=== PATIENT | female | born 1975 | race Caucasian/White ===

== ENCOUNTER 2018-12-29 16:10 | Inpatient (IN) | payer OTHER ==
[~2018-12-29] VITALS: Ht 137.2 cm; Wt 82.6 kg
--- NOTE | 2018-12-29 16:42 | PHYS DOC ---
Past Medical History Past Medical History: Asthma, Hypertension, Hypothyroid Past Surgical History: Cholecystectomy, Hysterectomy Alcohol Use: None Drug Use: None Adult General Chief Complaint Chief Complaint: COUGH HPI HPI 43-year-old female presents to ER via POV for complaints of productive cough and congestion for the past week. She reports she feels like she has had a low-grade temperature at triage is 98.5. Patient states she has had yellowish-green phlegm with her cough. She denies shortness of air or chest pain/tightness. Patient reports she's had regular appetite denying any vomiting or diarrhea episodes. She denies any urinary symptoms. She reports she has been using [id number] Mucinex and did take a Percocet and Xanax today for generalized aches and anxiety. Patient is daily smoker. Pt has had hysterectomy. Review of Systems Review of Systems Constitutional: Denies fever or chills [] Eyes: Denies change in visual acuity, redness, or eye pain [] HENT: Denies nasal congestion or sore throat [] Respiratory: Denies cough or shortness of breath [] Cardiovascular: No additional information not addressed in HPI [] GI: Denies abdominal pain, nausea, vomiting, bloody stools or diarrhea [] : Denies dysuria or hematuria [] Musculoskeletal: Denies back pain or joint pain [] Integument: Denies rash or skin lesions [] Neurologic: Denies headache, focal weakness or sensory changes [] Endocrine: Denies polyuria or polydipsia [] All other systems were reviewed and found to be within normal limits, except as documented in this note. Current Medications Current Medications Current Medications Medications (Trade) Dose Ordered Sig/Carissa Start Time Stop Time Status Last Admin Dose Admin Albuterol/ Ipratropium (Duoneb) 3 ml 1X ONCE 12/29/18 19:00 12/29/18 19:01 DC 12/29/18 19:05 3 ML Info (CONTRAST GIVEN -- Rx MONITORING) 1 each PRN DAILY PRN 12/29/18 18:45 12/31/18 18:44 Iohexol (Omnipaque 350 Mg/ml) 100 ml 1X ONCE 12/29/18 19:00 12/29/18 19:01 DC 12/29/18 18:51 100 ML Prednisone (Prednisone) 50 mg 1X ONCE 4/28/19 16:45 12/29/18 16:46 DC 12/29/18 16:53 50 MG Sodium Chloride 1,000 ml @ 1,000 mls/hr 1X ONCE 12/29/18 18:00 12/29/18 18:59 DC 12/29/18 18:00 1,000 MLS/HR Allergies Allergies Allergies Coded Allergies Type Severity Reaction Last Updated Verified No Known Drug Allergies 12/29/18 No Physical Exam Physical Exam Constitutional: Well developed, well nourished, no acute distress, non-toxic appearance. [] HENT: Normocephalic, atraumatic, bilateral ears normal, oropharynx moist- no pharyngeal swelling/erythema, no oral exudates, nose normal. [] Eyes: Pupils equal, conjunctiva normal, no discharge. [] Neck: Normal range of motion, no tenderness, supple, no stridor/gross adenopathy Cardiovascular: Heart rate regular rhythm, no murmur [] Lungs & Thorax: Bilateral breath sounds clear to auscultation- diminished air movement throughout all lung yates. Resp. equal/nonlabored. Speaking in full sentences Skin: Warm, dry, no erythema, no rash. [] Back: No tenderness, no CVA tenderness. [] Extremities: No tenderness, no cyanosis, no clubbing, ROM intact, no edema. [] Neurologic: Alert and oriented X 3, normal motor function, normal sensory function, no focal deficits noted. [] Psychologic: Affect normal, judgement normal, mood normal. [] Current Patient Data Vital Signs Vital Signs Date Time Temp Pulse Resp B/P (MAP) Pulse Ox O2 Delivery O2 Flow Rate FiO2 12/29/18 19:00 98 Room Air 12/29/18 18:49 75 16 134/58 (83) 12/29/18 16:21 98.5 98.5 Lab Values Laboratory Tests Test 12/29/18 17:38 12/29/18 17:55 Urine Collection Type Unknown Urine Color Yellow Urine Clarity Clear Urine pH 6.0 Urine Specific [place] 1.010 Urine Protein Negative mg/dL (NEG-TRACE) Urine Glucose (UA) Negative mg/dL (NEG) Urine Ketones (Stick) Negative mg/dL (NEG) Urine Blood Negative (NEG) Urine Nitrite Negative (NEG) Urine Bilirubin Negative (NEG) Urine Urobilinogen Dipstick 0.2 mg/dL (0.2 mg/dL) Urine Leukocyte Esterase Negative (NEG) Urine RBC 0 /HPF (0-2) Urine WBC 0 /HPF (0-4) Urine Squamous Epithelial Cells Few /LPF Urine Bacteria 0 /HPF (0-FEW) White Blood Count 10.4 x10^3/uL (4.0-11.0) Red Blood Count 4.02 x10^6/uL (3.50-5.40) Hemoglobin 13.6 g/dL (12.0-15.5) Hematocrit 40.0 % (36.0-47.0) Mean Corpuscular Volume 100 fL (79-100) Mean Corpuscular Hemoglobin 34 pg (25-35) Mean Corpuscular Hemoglobin Concent 34 g/dL (31-37) Red Cell Distribution Width 14.1 % (11.5-14.5) Platelet Count 367 x10^3/uL (140-400) Neutrophils (%) (Auto) 68 % (31-73) Lymphocytes (%) (Auto) 21 % (24-48) L Monocytes (%) (Auto) 10 % (0-9) H Eosinophils (%) (Auto) 2 % (0-3) Basophils (%) (Auto) 1 % (0-3) Neutrophils # (Auto) 7.0 x10^3uL (1.8-7.7) Lymphocytes # (Auto) 2.2 x10^3/uL (1.0-4.8) Monocytes # (Auto) 1.0 x10^3/uL (0.0-1.1) Eosinophils # (Auto) 0.2 x10^3/uL (0.0-0.7) Basophils # (Auto) 0.1 x10^3/uL (0.0-0.2) Sodium Level 139 mmol/L (136-145) Potassium Level 3.9 mmol/L (3.5-5.1) Chloride Level 100 mmol/L (98-107) Carbon Dioxide Level 28 mmol/L (21-32) Anion Gap 11 (6-14) Blood Urea Nitrogen 10 mg/dL (7-20) Creatinine 0.7 mg/dL (0.6-1.0) Estimated GFR (Cockcroft-Gault) 90.5 BUN/Creatinine Ratio 14 (6-20) Glucose Level 93 mg/dL (70-99) Calcium Level 8.5 mg/dL (8.5-10.1) Magnesium Level 2.1 mg/dL (1.8-2.4) Total Bilirubin 0.3 mg/dL (0.2-1.0) Aspartate Amino Transferase (AST) 13 U/L (15-37) L Alanine Aminotransferase (ALT) 25 U/L (14-59) Alkaline Phosphatase 78 U/L (46-116) Total Protein 7.3 g/dL (6.4-8.2) Albumin 3.4 g/dL (3.4-5.0) Albumin/Globulin Ratio 0.9 (1.0-1.7) L Laboratory Tests 12/29/18 17:55 Laboratory Tests 12/29/18 17:55 EKG EKG [] Radiology/Procedures Radiology/Procedures PROCEDURE: CHEST PA & LATERAL PA and lateral chest. HISTORY: Severe cough PA and lateral views were taken of the chest. Lungs are clear. Heart is normal in size without heart failure. There is no pleural effusion. IMPRESSION: 1. No acute chest disease. Electronically signed by: Clark Rashid MD (12/29/2018 5:27 PM) [id number] DICTATED and SIGNED BY: CLARK RASHID MD DATE: 12/29/187 PROCEDURE: CT ANGIOGRAPHY CHEST CT angiogram of the chest with contrast: Reason for examination: Shortness of breath with cough. Helical images were obtained through the chest with intravenous administration of 100 cc of Omnipaque 350 using PE protocol. 3-D MIPS reconstruction was performed in sagittal and coronal planes. Exposure: One or more of the following individualized dose reduction techniques were utilized for this examination: 1. Automated exposure control 2. Adjustment of the mA and/or kV according to patient size 3. Use of iterative reconstruction technique. No abnormality seen at the thyroid gland. The trachea and mainstem bronchi show no intraluminal lesions. No abnormality seen at the esophagus. The thoracic aorta shows no aneurysmal dilatation or evidence of dissection. The heart size is normal with no pericardial effusion. There is no evidence of pulmonary embolus. There are some mild patchy areas of groundglass infiltrate in the left upper lobe. There also appear to be small nodular densities pleural-based anterior medially in the lingula near the angle of the heart measuring 1.6 and 1 cm in size. No abnormality seen at the visualized portions of the liver, spleen or adrenal glands. There are no acute bony abnormality seen in the chest. IMPRESSION: No evidence of pulmonary embolus. Mild patchy groundglass infiltrates in the left upper lobe peripherally. Small pulmonary nodules in the anterior medial aspect of the lingula at the angle of the heart measuring 1.6 and 1 cm in size. Recommend follow-up according to Fleischner Society guidelines. According to the 2017 Fleischner Society Guidelines for multiple solid pulmonary nodules (Radiology, October 2016, volume 284, number 1, pages 228-243): In low risk multiple nodule patient: <6mm - No follow up required. 6-8mm - CT at 3-6 months, then consider CT at 18-24 months >8mm - CT at 3-6 months, then consider CT at 18-24 months In high risk multiple nodule patient: <6mm - Optional 12 month follow up. 6-8mm - CT at 3-6 months, then consider CT at 18-24 months >8mm - CT at 3-6 months, then consider CT at 18-24 months Use most suspicious nodule as guided to management. Electronically signed by: Klaudia Reddy MD (12/29/2018 7:48 PM) [facility] DICTATED and SIGNED BY: KLAUDIA REDDY MD DATE: 12/29/181947 Course & Med Decision Making Course & Med Decision Making Pertinent Imaging studies reviewed. (See chart for details) 1900: Re-evaluation patient has increased air movement in upper lobes- expiratory wheeze bilat. upper lobes. Diminished in bases. She reports her symptoms have improved following treatments received. Discussed lab results with no acute findings. Patient's CT chest is pending. Will administer her second DuoNeb treatment while that is pending. Patient is in no visible distress at this time with equal nonlabored respirations. Pt was evaluated in the ER for c/o prod. cough and SOA- pt had CT chest obtained as initial xray was viewed by ER physician with area of question in rt upper lobe and so obtained CT for further eval. On CT chest report "No evidence of pulmonary embolus. Mild patchy groundglass infiltrates in the left upper lobe peripherally". Discussed test results with pt with her mother at bedside. On re- evaluation pt continues to have expiratory wheezing in bilat. upper lobes with coarse lt upper sounds also- she does have increased air movement in bases. Resp. equal/nonlabored. Discussed admission for further care/monitoring and pt is agreeable with admit plan. Will admit to hospitalist services and provide dose of IV Rocephin and Azithromycin. Dragon Disclaimer Dragon Disclaimer This electronic medical record was generated, in whole or in part, using a voice recognition dictation system. Departure Departure Impression: Primary Impression: Left upper lobe pulmonary infiltrate Disposition: ADMITTED INPATIENT Admitting Physician: Jessie Schultz Condition: STABLE REFFITTKANE APRN Dec 29, 2018 16:42
[2018-12-29] MEDS ORDERED: IPRATRPIUM/ALBUTEROL 0.5/2.5MG 3 ML NEBU. NEB ONE ×2 (16:45→19:00)
[2018-12-29] MEDS ORDERED: predniSONE 10 MG TABLET PO ONE (16:45)
--- NOTE | 2018-12-29 17:30 | RAD ---
PA and lateral chest. HISTORY: Severe cough PA and lateral views were taken of the chest. Lungs are clear. Heart is normal in size without heart failure. There is no pleural effusion. IMPRESSION: 1. No acute chest disease. Electronically signed by: Clark Rashid MD (12/29/2018 5:27 PM) [id number]
[2018-12-29 17:53] LABS: BILIRUBIN,URINE NEGATIVE (NEG); CLARITY,URINE CLEAR; COLOR,URINE YELLOW; NITRITE,URINE NEGATIVE (NEG); PROTEIN,URINE NEGATIVE (NEG-TRACE); UROBILINOGEN,URINE 0.2 mg/dL (0.2 mg/dL)
[2018-12-29 17:59] LABS: BACTERIA,URINE 0 /HPF (0-FEW); RBC,URINE 0 /HPF (0-2); SQUAMOUS EPITHELIAL CELL,UR FEW /LPF; WBC,URINE 0 /HPF (0-4)
[2018-12-29] MEDS ORDERED: IV NORMAL SALINE 1000ML BAG 1,000 ML IV ONE (18:00)
[2018-12-29 18:11] LABS: BASO # 0.1 x10^3/uL (0.0-0.2); BASO % 1 % (0-3); EOS # 0.2 x10^3/uL (0.0-0.7); EOS % 2 % (0-3); HEMOGLOBIN 13.6 g/dL (12.0-15.5); LYMPH # 2.2 x10^3/uL (1.0-4.8); LYMPH % 21 % (24-48); MEAN CORPUSCULAR HEMOGLOBIN 34 pg (25-35); MEAN CORPUSCULAR HGB CONC 34 g/dL (31-37); MEAN CORPUSCULAR VOLUME 100 fL (79-100); MONO % 10 % (0-9); NEUT % 68 % (31-73); PLATELET COUNT 367 x10^3/uL (140-400); RED BLOOD COUNT 4.02 x10^6/uL (3.50-5.40); RED CELL DISTRIBUTION WIDTH 14.1 % (11.5-14.5); WHITE BLOOD COUNT 10.4 x10^3/uL (4.0-11.0)
[2018-12-29 18:24] LABS: CALCIUM 8.5 mg/dL (8.5-10.1); CREATININE 0.7 mg/dL (0.6-1.0); GFR 90.5; POTASSIUM 3.9 mmol/L (3.5-5.1)
[2018-12-29 18:28] LABS: ALBUMIN 3.4 g/dL (3.4-5.0); ALBUMIN/GLOBULIN RATIO 0.9 (1.0-1.7); MAGNESIUM 2.1 mg/dL (1.8-2.4); TOTAL BILIRUBIN 0.3 mg/dL (0.2-1.0); TOTAL PROTEIN 7.3 g/dL (6.4-8.2)
[2018-12-29] MEDS ORDERED: CONTRAST GIVEN. MC PRN (18:45)
[2018-12-29] MEDS ORDERED: IOHEXOL 350 MG/ML 100 ML VIAL. IV ONE (19:00)
--- NOTE | 2018-12-29 19:50 | RAD ---
CT angiogram of the chest with contrast: Reason for examination: Shortness of breath with cough. Helical images were obtained through the chest with intravenous administration of 100 cc of Omnipaque 350 using PE protocol. 3-D MIPS reconstruction was performed in sagittal and coronal planes. Exposure: One or more of the following individualized dose reduction techniques were utilized for this examination: 1. Automated exposure control 2. Adjustment of the mA and/or kV according to patient size 3. Use of iterative reconstruction technique. No abnormality seen at the thyroid gland. The trachea and mainstem bronchi show no intraluminal lesions. No abnormality seen at the esophagus. The thoracic aorta shows no aneurysmal dilatation or evidence of dissection. The heart size is normal with no pericardial effusion. There is no evidence of pulmonary embolus. There are some mild patchy areas of groundglass infiltrate in the left upper lobe. There also appear to be small nodular densities pleural-based anterior medially in the lingula near the angle of the heart measuring 1.6 and 1 cm in size. No abnormality seen at the visualized portions of the liver, spleen or adrenal glands. There are no acute bony abnormality seen in the chest. IMPRESSION: No evidence of pulmonary embolus. Mild patchy groundglass infiltrates in the left upper lobe peripherally. Small pulmonary nodules in the anterior medial aspect of the lingula at the angle of the heart measuring 1.6 and 1 cm in size. Recommend follow-up according to Fleischner Society guidelines. According to the 2017 Fleischner Society Guidelines for multiple solid pulmonary nodules (Radiology, October 2016, volume 284, number 1, pages 228-243): In low risk multiple nodule patient: <6mm - No follow up required. 6-8mm - CT at 3-6 months, then consider CT at 18-24 months >8mm - CT at 3-6 months, then consider CT at 18-24 months In high risk multiple nodule patient: <6mm - Optional 12 month follow up. 6-8mm - CT at 3-6 months, then consider CT at 18-24 months >8mm - CT at 3-6 months, then consider CT at 18-24 months Use most suspicious nodule as guided to management. Electronically signed by: Klaudia Chandra MD (12/29/2018 7:48 PM) [facility]
[2018-12-29] MEDS ORDERED: oxyCODONE IR 5 MG TABLET PO PRN (20:45)
[2018-12-29] MEDS ORDERED: MORPHINE SULFATE 2 MG/ML VIAL. IV PRN (20:45)
[2018-12-29] MEDS ORDERED: ACETAMINOPHEN 325 MG TABLET. PO PRN ×2 (20:45→21:15)
[2018-12-29] MEDS ORDERED: levOFLOXacin PER PHARMACY. MC PRN (20:45)
[2018-12-29] MEDS ORDERED: IBUPROFEN 400 MG TABLET. PO PRN (20:45)
[2018-12-29] MEDS ORDERED: PROCHLORPERAZINE 25 MG SUPP.RECT. PR PRN (20:45)
[2018-12-29] MEDS ORDERED: PROCHLORPERAZINE 10 MG/2 ML VIAL. IV PRN (20:45)
[2018-12-29] MEDS ORDERED: MAGNESIUM HYDROXIDE 2,400 MG/30 ML ORAL.SUSP. PO PRN (20:45)
[2018-12-29] MEDS ORDERED: MAG HYDROX/ALUMINUM HYD/SIMETH 30 ML ORAL.SUSP PO PRN (20:45)
[2018-12-29] MEDS ORDERED: ZOLPIDEM 5 MG TABLET. PO PRN (20:45)
[2018-12-29] MEDS ORDERED: BISACODYL 10 MG SUPP.RECT. PR PRN (20:45)
[2018-12-29] MEDS ORDERED: CALCIUM CARBONATE 500 MG TAB.CHEW PO PRN (20:45)
[2018-12-29] MEDS ORDERED: ONDANSETRON PF 4 MG/2 ML VIAL. IV PRN (20:45)
[2018-12-29] MEDS ORDERED: cefTRIAXone IV Push 1 GM VIAL. IVP ONE (21:00)
[2018-12-29] MEDS ORDERED: AZITHRMYCN 500MG IVPB FOR OMNI 250 ML IV ONE (21:00)
[2018-12-29 21:25] VITALS: BP 134/74
--- NOTE | 2018-12-29 21:30 | NUR ---
The patient, ZOIE GEORGES, 43 y/o, F admitted by TY MCKNIGHT MD, was given written information regarding hospital policies, unit procedures and contact persons. Valuables were checked and all questions answered. Will continue to monitor.
[2018-12-29] MEDS: BENZONATATE 100 MG CAPSULE. PO SCH (21:53)
[2018-12-29] MEDS ORDERED: VALP250C2 PO (22:45)
[2018-12-29] MEDS ORDERED: CITA40TA5 PO (22:45)
[2018-12-29] MEDS ORDERED: HYDR-2145 PO (22:45)
[2018-12-29] MEDS ORDERED: LEVO50TA5 PO (22:45)
[2018-12-29] MEDS ORDERED: METF500T16 PO (22:45)
[2018-12-29] MEDS ORDERED: BUSP10TA PO (22:45)
[2018-12-29 23:00] VITALS: BP_SYST 108; BP_SYST 134; BP_DIAS 56; BP_DIAS 74
[2018-12-29] MEDS: busPIRone 10 MG TABLET. PO SCH (23:05)
[2018-12-29] MEDS: VALPROIC ACID 250 MG CAPSULE. PO SCH (23:31)
[2018-12-30 03:00] VITALS: BP 130/74
[2018-12-30] MEDS: guaiFENesin DM 200MG/20MG 10 ML SYRUP PO PRN ×3 (03:45→17:26)
[2018-12-30] MEDS: LEVOTHYROXINE 50 MCG TABLET PO SCH (05:59)
[2018-12-30 07:00] VITALS: BP 115/59
[2018-12-30] MEDS: IPRATRPIUM/ALBUTEROL 0.5/2.5MG 3 ML NEBU. NEB SCH ×4 (07:00→19:31)
[2018-12-30] MEDS ORDERED: IPRATRPIUM/ALBUTEROL 0.5/2.5MG 3 ML NEBU. NEB SCH (08:00)
[2018-12-30] MEDS: VALPROIC ACID 250 MG CAPSULE. PO SCH ×3 (08:27→20:56)
[2018-12-30] MEDS: busPIRone 10 MG TABLET. PO SCH ×3 (08:27→20:56)
[2018-12-30] MEDS: BENZONATATE 100 MG CAPSULE. PO SCH ×3 (08:27→20:56)
[2018-12-30] MEDS: NICOTINE 21MG PATCH. TD PRN (08:27)
[2018-12-30] MEDS: CITALOPRAM 20 MG TABLET. PO SCH (08:28)
[2018-12-30] MEDS: hydroCHLOROthiazide 25 MG TABLET PO SCH (08:28)
[2018-12-30] MEDS: HYDROcodone/APAP 5/325MG 1 TAB TABLET PO PRN (08:29)
[2018-12-30 10:57] VITALS: BP 101/55
--- NOTE | 2018-12-30 12:50 | PDOC1 ---
History and Physical Date of Admission Date of Admission DATE: 12/30/18 TIME: 12:46 History of Present Illness History of Present Illness Natalie tobar 43-year-old female presents to ER via POV for complaints of productive cough and congestion for the past week. She reports she feels like she has had a low-grade temperature at triage is 98.5. Patient states she has had yellowish-green phlegm with her cough. She denies shortness of air or chest pain/tightness. Patient reports she's had regular appetite denying any vomiting or diarrhea episodes. She denies any urinary symptoms. She reports she has been using [id number] Mucinex and did take a Percocet and Xanax today for generalized aches and anxiety. Past Medical History Cardiovascular: HTN Past Surgical History Past Surgical History: Hysterectomy Family History Family History: Diabetes Social History Smoke: 1 pack per day ALCOHOL: rare Drugs: None Current Medications Current Medications Current Medications Albuterol/ Ipratropium (Duoneb) 3 ml 1X ONCE NEB Last administered on 12/29/18at 16:47; Start 12/29/18 at 16:45; Stop 12/29/18 at 16:46; Status DC Prednisone (Prednisone) 50 mg 1X ONCE PO Last administered on 12/29/18at 16:53; Start 12/29/18 at 16:45; Stop 12/29/18 at 16:46; Status DC Sodium Chloride 1,000 ml @ 1,000 mls/hr 1X ONCE IV Last administered on 12/29/18at 18:00; Start 12/29/18 at 18:00; Stop 12/29/18 at 18:59; Status DC Iohexol (Omnipaque 350 Mg/ml) 100 ml 1X ONCE IV Last administered on 12/29/18at 18:51; Start 12/29/18 at 19:00; Stop 12/29/18 at 19:01; Status DC Info (CONTRAST GIVEN -- Rx MONITORING) 1 each PRN DAILY PRN MC SEE COMMENTS; Start 12/29/18 at 18:45; Stop 12/31/18 at 18:44 Albuterol/ Ipratropium (Duoneb) 3 ml 1X ONCE NEB Last administered on 12/29/18at 19:05; Start 12/29/18 at 19:00; Stop 12/29/18 at 19:01; Status DC Ceftriaxone Sodium (Rocephin) 1 gm 1X ONCE IVP Last administered on 12/29/18at 21:52; Start 12/29/18 at 21:00; Stop 12/29/18 at 21:01; Status DC Azithromycin 250 ml @ 250 mls/hr 1X ONCE IV Last administered on 12/29/18at 21:52; Start 12/29/18 at 21:00; Stop 12/29/18 at 21:59; Status DC Ondansetron HCl (Zofran) 4 mg PRN Q6HRS PRN IV NAUSEA/VOMITING, 1st CHOICE; Start 12/29/18 at 20:45 Prochlorperazine Edisylate (Compazine) 10 mg PRN Q6HRS PRN IV NAUSEA/VOMITING, 2nd CHOICE; Start 12/29/18 at 20:45 Prochlorperazine (Compazine) 25 mg PRN Q12HR PRN [place] NAUSEA/VOMITING; Start 12/29/18 at 20:45 Al Hydroxide/Mg Hydroxide (Mylanta Plus Xs) 30 ml PRN Q3HRS PRN PO HEARTBURN / GAS; Start 12/29/18 at 20:45 Calcium Carbonate/ Glycine (Tums) 500 mg PRN Q3HRS PRN PO UPSET STOMACH; Start 12/29/18 at 20:45 Zolpidem Tartrate (Ambien) 5 mg PRN QHS PRN PO INSOMNIA, MAY REPEAT IN 1HR; Start 12/29/18 at 20:45 Oxycodone HCl (Roxicodone) 5 mg PRN Q3HRS PRN PO BREAKTHROUGH PAIN; Start 12/29/18 at 20:45 Morphine Sulfate (Morphine Sulfate) 2 mg PRN Q2HR PRN IV PAIN; Start 12/29/18 at 20:45 Acetaminophen/ Hydrocodone Bitart (Lortab 5/325) 1 tab PRN Q4HRS PRN PO MILD PAIN, 2nd CHOICE Last administered on 12/30/18at 08:29; Start 12/29/18 at 20:45 Acetaminophen (Tylenol) 650 mg PRN Q6HRS PRN PO Headaches, Temp > 101.5F; Start 12/29/18 at 20:45 Ibuprofen (Motrin) 400 mg PRN Q6HRS PRN PO MILD PAIN, 1st CHOICE Last administered on 12/30/18at 03:48; Start 12/29/18 at 20:45 Magnesium Hydroxide (Milk Of Magnesia) 2,400 mg PRN Q12HR PRN PO CONSTIPATION; Start 12/29/18 at 20:45 Bisacodyl (Dulcolax Supp) 10 mg PRN DAILY PRN [place] CONSTIPATION; Start 12/29/18 at 20:45 Levofloxacin/ Dextrose (Levaquin Per Pharmacy) 1 each PRN DAILY PRN MC SEE COMMENTS; Start 12/29/18 at 20:45 Albuterol/ Ipratropium (Duoneb) 3 ml RTQID NEB Last administered on 12/30/18at 07:00; Start 12/30/18 at 08:00 Guaifenesin (Robitussin Dm) 10 ml PRN Q6HRS PRN PO COUGH Last administered on 12/30/18at 11:17; Start 12/29/18 at 20:45 Benzonatate (Tessalon Perle) 100 mg [id number] PO Last administered on 12/30/18 08:27; Start 12/29/18 at 21:00 Nicotine (Nicoderm Cq 21mg) 1 patch PRN DAILY PRN TD SMOKING CESSATION Last administered on 12/30/18at 08:27; Start 12/29/18 at 20:45 Levofloxacin/ Dextrose 100 ml @ 100 mls/hr Q24H IV Last administered on at 23:06; Start 12/29/18 at 22:00 Acetaminophen (Tylenol) 650 mg PRN Q4HRS PRN PO FEVER; Start 12/29/18 at 21:15; Stop 12/30/18 at 21:14; Status Cancel Albuterol/ Ipratropium (Duoneb) 3 ml RTQID NEB ; Start 12/30/18 at 08:00; Stop 12/31/18 at 07:59; Status UNV Buspirone HCl (Buspar) 10 mg TID PO Last administered on 12/30/18 08:27; Start 12/29/18 at 23:00 Hydrochlorothiazide (Hydrodiuril) 25 mg DAILY PO Last administered on 12/30/18 08:28; Start 12/30/18 at 09:00 Valproic Acid (Depakene) 250 mg TID PO Last administered on 4/29/19at 08:27; Start 12/29/18 at 23:00 Citalopram Hydrobromide (CeleXA) 40 mg DAILY PO Last administered on 12/30/18at 08:28; Start 12/30/18 at 09:00 Levothyroxine Sodium (Synthroid) 50 mcg DAILY06 PO Last administered on at 05:59; Start 12/30/18 at 06:00 Metformin HCl (Glucophage) 500 mg BIDWMEALS PO ; Start 01/01/19 at 08:00 Active Scripts Active Reported Valproic Acid 250 Mg Capsule 250 Mg PO TID Hydrochlorothiazide Tablet (Hydrochlorothiazide) 25 Mg Tablet 25 Mg PO DAILY Levothyroxine Sodium 50 Mcg Tablet 1 Tab PO DAILY Metformin Hcl 500 Mg Tablet 500 Mg PO BIDWMEALS Citalopram Hbr (Citalopram Hydrobromide) 40 Mg Tablet 1 Tab PO DAILY Buspirone Hcl 10 Mg Tablet 1 Tab PO TID Allergies Allergies: Coded Allergies: No Known Drug Allergies (Unverified , 12/29/18) ROS General: YES: Fatigue; No: Chills, Night Sweats, Malaise, Appetite, Other PSYCHOLOGICAL ROS: No: Anxiety, Behavioral Disorder, Concentration difficultie, Decreased libido, Depression, Disorientation, Hallucinations, Hostility, Irritablity, Memory difficulties, Mood Swings, Obsessive thoughts, Physical abu se, Sexual abuse, Sleep disturbances, Suicidal ideation, Other Eyes: No Blurry vision, No Decreased vision, No Double vision, No Dry eyes, No Excessive tearing, No Eye Pain, No Itchy Eyes, No Loss of vision, No Photophobia, No Scotomata, No Uses contacts, No Uses glasses, No Other Respiratory: YES: SOB with excertion, Sputum Changes Gastrointestinal: Yes Nausea; No Vomiting, No Abdominal Pain, No Diarrhea, No Constipation, No Melena, No Hematochezia, No Other Genitourinary: No Dysuria, No Frequency, No Incontinence, No Hematuria, No Retention, No Discharge, No Urgency, No Pain, No Flank Pain, No Other, No , No , No , No , No , No , No Musculoskeletal: Yes Joint Pain, Yes Joint Stiffness; No Gait Disturbance, No Joint Swelling, No Muscle Pain, No Muscular Weakness, No Pain In:, No Swelling In:, No Other Neurological: No Behavorial Changes, No Bowel/Bladder ControlChng, No Confusion, No Dizziness, No Gait Disturbance, No Headaches, No Impaired Coord/balance, No Memory Loss, No Numbness/Tingling, No Seizures, No Speech Problems, No Tremors, No Visual Changes, No Weakness, No Other Skin: No Dry Skin, No Eczema, No Hair Changes, No Lumps, No Mole Changes, No Mottling, No Nail Changes, No Pruritus, No Rash, No Skin Lesion Changes, No Other, No Acne Physical Exam General: Alert, Cooperative, No acute distress, mild distress HEENT: PERRLA, Mucous membr. moist/pink Lungs: Other (wheeze, rales) Heart: S1S2, RRR, no gallops, other Extremities: No cyanosis, Normal pulses Skin: No rashes Neuro: Normal speech, Normal tone, Sensation intact Psych/Mental Status: Mental status NL, Mood NL Vitals Vitals Vital Signs Date Time Temp Pulse Resp B/P (MAP) Pulse Ox O2 Delivery O2 Flow Rate FiO2 12/30/18 10:57 97.7 70 20 101/55 (70) 94 Room Air 97.7 Labs Labs Laboratory Tests Test 12/29/18 17:38 12/29/18 17:55 12/30/18 06:41 Urine Collection Type Unknown Urine Color Yellow Urine Clarity Clear Urine pH 6.0 Urine Specific [place] 1.010 Urine Protein Negative mg/dL (NEG-TRACE) Urine Glucose (UA) Negative mg/dL (NEG) Urine Ketones (Stick) Negative mg/dL (NEG) Urine Blood Negative (NEG) Urine Nitrite Negative (NEG) Urine Bilirubin Negative (NEG) Urine Urobilinogen Dipstick 0.2 mg/dL (0.2 mg/dL) Urine Leukocyte Esterase Negative (NEG) Urine RBC 0 /HPF (0-2) Urine WBC 0 /HPF (0-4) Urine Squamous Epithelial Cells Few /LPF Urine Bacteria 0 /HPF (0-FEW) White Blood Count 10.4 x10^3/uL (4.0-11.0) Red Blood Count 4.02 x10^6/uL (3.50-5.40) Hemoglobin 13.6 g/dL (12.0-15.5) Hematocrit 40.0 % (36.0-47.0) Mean Corpuscular Volume 100 fL (79-100) Mean Corpuscular Hemoglobin 34 pg (25-35) Mean Corpuscular Hemoglobin Concent 34 g/dL (31-37) Red Cell Distribution Width 14.1 % (11.5-14.5) Platelet Count 367 x10^3/uL (140-400) Neutrophils (%) (Auto) 68 % (31-73) Lymphocytes (%) (Auto) 21 % (24-48) Monocytes (%) (Auto) 10 % (0-9) Eosinophils (%) (Auto) 2 % (0-3) Basophils (%) (Auto) 1 % (0-3) Neutrophils # (Auto) 7.0 x10^3uL (1.8-7.7) Lymphocytes # (Auto) 2.2 x10^3/uL (1.0-4.8) Monocytes # (Auto) 1.0 x10^3/uL (0.0-1.1) Eosinophils # (Auto) 0.2 x10^3/uL (0.0-0.7) Basophils # (Auto) 0.1 x10^3/uL (0.0-0.2) Sodium Level 139 mmol/L (136-145) Potassium Level 3.9 mmol/L (3.5-5.1) Chloride Level 100 mmol/L (98-107) Carbon Dioxide Level 28 mmol/L (21-32) Anion Gap 11 (6-14) Blood Urea Nitrogen 10 mg/dL (7-20) Creatinine 0.7 mg/dL (0.6-1.0) Estimated GFR (Cockcroft-Gault) 90.5 BUN/Creatinine Ratio 14 (6-20) Glucose Level 93 mg/dL (70-99) Calcium Level 8.5 mg/dL (8.5-10.1) Magnesium Level 2.1 mg/dL (1.8-2.4) Total Bilirubin 0.3 mg/dL (0.2-1.0) Aspartate Amino Transf (AST/SGOT) 13 U/L (15-37) Alanine Aminotransferase (ALT/SGPT) 25 U/L (14-59) Alkaline Phosphatase 78 U/L (46-116) Total Protein 7.3 g/dL (6.4-8.2) Albumin 3.4 g/dL (3.4-5.0) Albumin/Globulin Ratio 0.9 (1.0-1.7) Glucose (Fingerstick) 103 mg/dL (70-99) Laboratory Tests Test 12/29/18 17:38 12/29/18 17:55 12/30/18 06:41 Urine Collection Type Unknown Urine Color Yellow Urine Clarity Clear Urine pH 6.0 Urine Specific [place] 1.010 Urine Protein Negative mg/dL (NEG-TRACE) Urine Glucose (UA) Negative mg/dL (NEG) Urine Ketones (Stick) Negative mg/dL (NEG) Urine Blood Negative (NEG) Urine Nitrite Negative (NEG) Urine Bilirubin Negative (NEG) Urine Urobilinogen Dipstick 0.2 mg/dL (0.2 mg/dL) Urine Leukocyte Esterase Negative (NEG) Urine RBC 0 /HPF (0-2) Urine WBC 0 /HPF (0-4) Urine Squamous Epithelial Cells Few /LPF Urine Bacteria 0 /HPF (0-FEW) White Blood Count 10.4 x10^3/uL (4.0-11.0) Red Blood Count 4.02 x10^6/uL (3.50-5.40) Hemoglobin 13.6 g/dL (12.0-15.5) Hematocrit 40.0 % (36.0-47.0) Mean Corpuscular Volume 100 fL (79-100) Mean Corpuscular Hemoglobin 34 pg (25-35) Mean Corpuscular Hemoglobin Concent 34 g/dL (31-37) Red Cell Distribution Width 14.1 % (11.5-14.5) Platelet Count 367 x10^3/uL (140-400) Neutrophils (%) (Auto) 68 % (31-73) Lymphocytes (%) (Auto) 21 % (24-48) Monocytes (%) (Auto) 10 % (0-9) Eosinophils (%) (Auto) 2 % (0-3) Basophils (%) (Auto) 1 % (0-3) Neutrophils # (Auto) 7.0 x10^3uL (1.8-7.7) Lymphocytes # (Auto) 2.2 x10^3/uL (1.0-4.8) Monocytes # (Auto) 1.0 x10^3/uL (0.0-1.1) Eosinophils # (Auto) 0.2 x10^3/uL (0.0-0.7) Basophils # (Auto) 0.1 x10^3/uL (0.0-0.2) Sodium Level 139 mmol/L (136-145) Potassium Level 3.9 mmol/L (3.5-5.1) Chloride Level 100 mmol/L (98-107) Carbon Dioxide Level 28 mmol/L (21-32) Anion Gap 11 (6-14) Blood Urea Nitrogen 10 mg/dL (7-20) Creatinine 0.7 mg/dL (0.6-1.0) Estimated GFR (Cockcroft-Gault) 90.5 BUN/Creatinine Ratio 14 (6-20) Glucose Level 93 mg/dL (70-99) Calcium Level 8.5 mg/dL (8.5-10.1) Magnesium Level 2.1 mg/dL (1.8-2.4) Total Bilirubin 0.3 mg/dL (0.2-1.0) Aspartate Amino Transf (AST/SGOT) 13 U/L (15-37) Alanine Aminotransferase (ALT/SGPT) 25 U/L (14-59) Alkaline Phosphatase 78 U/L (46-116) Total Protein 7.3 g/dL (6.4-8.2) Albumin 3.4 g/dL (3.4-5.0) Albumin/Globulin Ratio 0.9 (1.0-1.7) Glucose (Fingerstick) 103 mg/dL (70-99) VTE Prophylaxis Ordered VTE Prophylaxis Devices: No VTE Pharmacological Prophylaxi: Yes Assessment/Plan Assessment/Plan pneumonia ALBIN hazy sepsis obesity tobacco use disorder VASU BAKER MD Dec 30, 2018 12:50
[2018-12-30 15:00] VITALS: BP 97/46
[2018-12-30 19:00] VITALS: BP 135/66
[2018-12-30] MEDS: LACTOBACILLUS RHAMNOSUS GG 1 CAPSULE. PO SCH (20:56)
[2018-12-30 22:54] VITALS: BP 113/62
[2018-12-31] MEDS: guaiFENesin DM 200MG/20MG 10 ML SYRUP PO PRN (00:15)
[2018-12-31] MEDS: HYDROcodone/APAP 5/325MG 1 TAB TABLET PO PRN ×2 (00:19→08:09)
[2018-12-31 03:00] VITALS: BP 130/73
[2018-12-31] MEDS: LEVOTHYROXINE 50 MCG TABLET PO SCH (05:52)
[2018-12-31 07:00] VITALS: BP 117/63
[2018-12-31] MEDS: LACTOBACILLUS RHAMNOSUS GG 1 CAPSULE. PO SCH (08:07)
[2018-12-31] MEDS: BENZONATATE 100 MG CAPSULE. PO SCH ×2 (08:07→14:42)
[2018-12-31] MEDS: hydroCHLOROthiazide 25 MG TABLET PO SCH (08:08)
[2018-12-31] MEDS: CITALOPRAM 20 MG TABLET. PO SCH (08:08)
[2018-12-31] MEDS: busPIRone 10 MG TABLET. PO SCH ×2 (08:08→14:42)
[2018-12-31] MEDS: IPRATRPIUM/ALBUTEROL 0.5/2.5MG 3 ML NEBU. NEB SCH ×2 (08:10→11:59)
[2018-12-31] MEDS: VALPROIC ACID 250 MG CAPSULE. PO SCH ×2 (08:10→14:42)
[2018-12-31 11:00] VITALS: BP 105/50
[2018-12-31] MEDS: NICOTINE 21MG PATCH. TD PRN (14:45)
--- NOTE | 2018-12-31 19:23 | PDOC3 ---
Discharge Summary Visit Information Date of Admission: Dec 30, 2018 Date of Discharge: Dec 31, 2018 Final Diagnosis pneumonia, ALBIN sepsis obesity, BMI 44 tobacco use disorder Brief Hospital Course Allergies Allergies Coded Allergies Type Severity Reaction Last Updated Verified No Known Drug Allergies 12/29/18 No Vital Signs Vital Signs Date Time Temp Pulse Resp B/P (MAP) Pulse Ox O2 Delivery O2 Flow Rate FiO2 12/31/18 11:59 94 Room Air 12/31/18 11:00 98.1 71 14 105/50 (68) 98.1 Lab Results Laboratory Tests Test 12/30/18 06:41 12/30/18 17:01 12/30/18 20:41 12/31/18 07:36 Glucose (Fingerstick) 103 mg/dL (70-99) 130 mg/dL (70-99) 124 mg/dL (70-99) 79 mg/dL (70-99) Test 12/31/18 11:35 Glucose (Fingerstick) 129 mg/dL (70-99) Laboratory Tests Test 12/30/18 20:41 12/31/18 07:36 12/31/18 11:35 Glucose (Fingerstick) 124 mg/dL (70-99) 79 mg/dL (70-99) 129 mg/dL (70-99) Brief Hospital Course Ms. Arce is a 43 old female, admit with cough, dyspnea, hypoxic, and LLL pneumonia broad abx, breath tx, better at 23 hours, Discharge Information Condition at Discharge: Improved Follow Up: Weeks Disposition/Orders: D/C to Home Scheduled Buspirone Hcl (Buspirone Hcl) 10 Mg Tablet, 1 TAB PO TID for depression, #60 Ref 1 (Reported) Entered as Reported by: MARLO ROBERTS on 12/29/182244 Last Taken: Unknown Dose on 12/29/18 Last Action: Continued on 12/29/182245 by MARLO ROBERTS Citalopram Hydrobromide (Citalopram Hbr) 40 Mg Tablet, 1 TAB PO DAILY for depression, #90 Ref 1 (Reported) Entered as Reported by: MARLO ROBERTS on 12/29/182244 Last Taken: Unknown Dose on 12/29/18 Last Action: Converted on 12/29/182245 by MARLO ROBERTS Hydrochlorothiazide (Hydrochlorothiazide Tablet ) 25 Mg Tablet, 25 MG PO DAILY for DIURETIC, Ref 0 (Reported) Entered as Reported by: MARLO ROBERTS on 12/29/182244 Last Taken: Unknown Dose on 12/29/18 Last Action: Continued on 12/29/182245 by MARLO ROBERTS Levothyroxine Sodium (Levothyroxine Sodium) 50 Mcg Tablet, 1 TAB PO DAILY for low thyroid, #30 Ref 5 (Reported) Entered as Reported by: MARLO ROBERTS on 12/29/182244 Last Taken: Unknown Dose on 12/29/18 Last Action: Converted on 12/29/182245 by MARLO ROBERTS Metformin Hcl (Metformin Hcl) 500 Mg Tablet, 500 MG PO BIDWMEALS for ANTI- DIABETIC, Ref 0 (Reported) Entered as Reported by: MARLO ROBERTS on 12/29/182244 Last Taken: Unknown Dose on 12/29/18 Last Action: Converted on 12/29/182245 by MARLO ROBERTS Valproic Acid (Valproic Acid) 250 Mg Capsule, 250 MG PO TID for depression, (Reported) Entered as Reported by: MARLO ROBERTS on 12/29/182244 Last Taken: Unknown Dose on 12/29/18 Last Action: Continued on 12/29/182245 by MARLO ROBERTS Patient Instructions Patient Instructions DC on Cipro 500 BID 1 week, she was greatly concerned with cost and felt she had no money for meds, only $4 from mom time > 30 min face to face VASU BAKER MD Dec 31, 2018 19:23
[2019-01-01] MEDS ORDERED: metFORMIN 500 MG TABLET PO SCH (08:00)
== END 2018-12-31 15:47 | disposition home or self-care (01) | DRG 871 ==
LOC: ER 16:10 → 5 NORTH 20:20
PROVIDERS: ADMIT Internal Medicine; ATTEND Internal Medicine
DX: A41.9 Sepsis, unspecified organism (principal); J18.1 Lobar pneumonia, unspecified organism; Z68.41 Body mass index [BMI] 40.0-44.9, adult; R91.8 Other nonspecific abnormal finding of lung field; E03.9 Hypothyroidism, unspecified; E66.9 Obesity, unspecified; F17.210 Nicotine dependence, cigarettes, uncomplicated; F41.9 Anxiety disorder, unspecified; I10 Essential (primary) hypertension; J45.909 Unspecified asthma, uncomplicated; Z83.3 Family history of diabetes mellitus; Z90.710 Acquired absence of both cervix and uterus; Z79.899 Other long term (current) drug therapy
CPT/HCPCS: 36415; 71046; 71275; 80053; 81001; 82962; 83735; 85025; 94640; 94760; 96360; 99406; J0456; J0696; J1956; J7030; J7512; J7620; Q9967; 99285-25